=== PATIENT | female | born 1980 | race Caucasian/White ===

== ENCOUNTER 2017-02-13 09:01 | Emergency (ER) | payer BC, OTHER ==
[~2017-02-13] VITALS: Ht 165.1 cm; Wt 85.0 kg
[2017-02-13 09:23] VITALS: BP 111/72; PULSE 78; RESP 15; TEMP 98.2; O2SAT 98
[2017-02-13 09:37] LABS: AUTOMATED NEUTROPHIL # 4.7 TH/MM3 (1.8-7.7); BASOPHIL % 0.5 % (0.0-2.0); EOSINOPHIL # 0.1 TH/MM3 (0-0.4); EOSINOPHIL % 1.4 % (0.0-4.0); HEMATOCRIT 37.5 % (35.0-46.0); HEMO FLAGS DIFF FINAL; LYMPH % 28.6 % (9.0-44.0); LYMPHOCYTE # 2.1 TH/MM3 (1.0-4.8); MEAN CELL VOLUME 93.7 FL (80.0-100.0); MEAN CORPUSCULAR HEMOGLOBIN 33.2 PG (27.0-34.0); MEAN CORPUSCULAR HGB CONC 35.5 % (32.0-36.0); MONO % 6.6 % (0.0-8.0); NEUT % 62.9 % (16.0-70.0); PLATELET COUNT 279 TH/MM3 (150-450); RED CELL DISTRIBUTION WIDTH 13.4 % (11.6-17.2); WHITE BLOOD COUNT 7.4 TH/MM3 (4.0-11.0)
[2017-02-13 09:41] LABS: BLOOD, URINE NEG (NEG); CALCIUM OXALATE CRYSTALS,URINE OCC /hpf; GLUCOSE,URINE NEG (NEG); GRANULAR CAST, URINE 1 /lpf; HYALINE CAST, URINE 3 /lpf (RARE); KETONE, URINE NEG (NEG); MUCUS URINE FEW /lpf (OCC); NITRITE,URINE NEG (NEG); PH, URINE 5.5 (5.0-8.5); SQUAMOUS EPITHELIAL CELL URINE 10 /hpf (0-5); URINE COLOR YELLOW (YELLW/STRAW)
[2017-02-13 09:43] LABS: BACTERIA, URINE FEW /hpf
[2017-02-13 09:44] LABS: COMMENT (UR) CULT NOT INDICATED; CULTURE IF INDICATED CULT NOT INDICATED
[2017-02-13 09:47] LABS: AMPHETAMINE, URINE NEG (NEG); BARBITURATES, URINE NEG (NEG); COCAINE, URINE NEG (NEG)
[2017-02-13 09:54] LABS: ALT (GPT) 45 U/L (10-53); ANION GAP 5 MEQ/L (5-15); AST (GOT) 22 U/L (15-37); BICARBONATE 30.8 MEQ/L (21.0-32.0); BLOOD UREA NITROGEN 15 MG/DL (7-18); CHLORIDE 105 MEQ/L (98-107); GLOMERULAR FILTRATION RATE 62 ML/MIN (>89); POTASSIUM 3.8 MEQ/L (3.5-5.1); SODIUM (NA) 141 MEQ/L (136-145); TOTAL BILIRUBIN ADULT 0.4 MG/DL (0.2-1.0)
[2017-02-13 09:55] LABS: ALKALINE PHOSPHATASE 71 U/L (45-117)
--- NOTE | 2017-02-13 09:57 | PD ---
HPI Chief Complaint: Psychiatric Symptoms Time Seen by Provider: 09:44 Travel History International Travel<30 days: No Contact w/Intl Traveler<30days: No Traveled to known affect area: No History of Present Illness HPI 36-year-old female was Roper acted and brought in for psychiatric evaluation. Patient was communicating with a friend this morning about suicidal ideation. Patient has history hypertension, hyperlipidemia. Patient is a smoker. Patient denies any alcohol or illicit drug abuse. Patient has history of anxiety panic attack, depression also. Patient is taking Wellbutrin Klonopin and Ambien. Patient states that she was taking food out of the refrigerator and out of washer and dryer last night. Patient denies any headache. Patient denies any chest pain or shortness of breath. Patient denies abdominal pain. Patient denies any recent injury. Patient denies any fever chills. Patient denies any chance of being . PFSH Social History Tobacco Use: No Allergies-Medications (Allergen,Severity, Reaction): Coded Allergies: No Known Allergies (Unverified , 02/13/17) Reported Meds & Prescriptions Reported Meds & Active Scripts Active Reported Wellbutrin Xl 24 HR (Bupropion HCl) 300 Mg Tab 200 Mg PO BID Klonopin (Clonazepam) 1 Mg Tab 1 Mg PO TID Atorvastatin (Atorvastatin Calcium) 10 Mg Tab 10 Mg PO DAILY Metoprolol Tartrate 25 Mg Tab 25 Mg PO DAILY Review of Systems General / Constitutional: No: Fever Eyes: No: Visual changes HENT: No: Headaches Cardiovascular: No: Chest Pain or Discomfort Respiratory: No: Shortness of Breath Gastrointestinal: No: Abdominal Pain Genitourinary: No: Dysuria Musculoskeletal: No: Pain Skin: No Rash Neurologic: No: Weakness Psychiatric: Positive: Anxiety, Depression, Suicidal Ideations Endocrine: No: Polydipsia Hematologic/Lymphatic: No: Easy Bruising Physical Exam Narrative GENERAL: Well-nourished, well-developed patient. SKIN: Focused skin assessment warm/dry. HEAD: Normocephalic. EYES: No scleral icterus. No injection or drainage. NECK: Supple, trachea midline. No JVD or lymphadenopathy. CARDIOVASCULAR: Regular rate and rhythm without murmurs, gallops, or rubs. RESPIRATORY: Breath sounds equal bilaterally. No accessory muscle use. GASTROINTESTINAL: Abdomen soft, non-tender, nondistended. MUSCULOSKELETAL: No cyanosis, or edema. BACK: Nontender without obvious deformity. No CVA tenderness. Neurologic exam: Patient's awake alert oriented 3. No obvious focal neurological deficit. Data Data Last Documented VS Vital Signs Date Time Temp Pulse Resp B/P Pulse Ox O2 Delivery O2 Flow Rate FiO2 02/13/17 12:53 97.7 69 18 111/71 98 Room Air Orders Complete Blood Count With Diff (02/13/17 09:20) Comprehensive Metabolic Panel (02/13/17 09:20) Urinalysis - C+S If Indicated (02/13/17 09:20) Psych Screen (02/13/17 09:20) Diet Regular Basic (02/13/17 Breakfast) Drug Screen, Random Urine (02/13/17 09:20) Alcohol (Ethanol) (02/13/17 09:20) Diet Regular Basic (02/13/17 Dinner) Labs Laboratory Tests Test 02/13/17 09:24 White Blood Count 7.4 TH/MM3 Red Blood Count 4.00 MIL/MM3 Hemoglobin 13.3 GM/DL Hematocrit 37.5 % Mean Corpuscular Volume 93.7 FL Mean Corpuscular Hemoglobin 33.2 PG Mean Corpuscular Hemoglobin 35.5 % Concent Red Cell Distribution Width 13.4 % Platelet Count 279 TH/MM3 Mean Platelet Volume 8.1 FL Neutrophils (%) (Auto) 62.9 % Lymphocytes (%) (Auto) 28.6 % Monocytes (%) (Auto) 6.6 % Eosinophils (%) (Auto) 1.4 % Basophils (%) (Auto) 0.5 % Neutrophils # (Auto) 4.7 TH/MM3 Lymphocytes # (Auto) 2.1 TH/MM3 Monocytes # (Auto) 0.5 TH/MM3 Eosinophils # (Auto) 0.1 TH/MM3 Basophils # (Auto) 0.0 TH/MM3 CBC Comment DIFF FINAL Differential Comment Urine Color YELLOW Urine Turbidity HAZY Urine pH 5.5 Urine Specific [place] 1.028 Urine Protein 100 mg/dL Urine Glucose (UA) NEG mg/dL Urine Ketones NEG mg/dL Urine Occult Blood NEG Urine Nitrite NEG Urine Bilirubin NEG Urine Urobilinogen LESS THAN 2.0 MG/DL Urine Leukocyte Esterase NEG Urine WBC 3 /hpf Urine Squamous Epithelial 10 /hpf Cells Urine Calcium Oxalate Crystals OCC /hpf Urine Bacteria FEW /hpf Urine Hyaline Casts 3 /lpf Urine Granular Casts 1 /lpf Urine Mucus FEW /lpf Microscopic Urinalysis Comment CULT NOT INDICATED Sodium Level 141 MEQ/L Potassium Level 3.8 MEQ/L Chloride Level 105 MEQ/L Carbon Dioxide Level 30.8 MEQ/L Anion Gap 5 MEQ/L Blood Urea Nitrogen 15 MG/DL Creatinine 1.02 MG/DL Estimat Glomerular Filtration 62 ML/MIN Rate Random Glucose 75 MG/DL Calcium Level 9.4 MG/DL Total Bilirubin 0.4 MG/DL Aspartate Amino Transf 22 U/L (AST/SGOT) Alanine Aminotransferase 45 U/L (ALT/SGPT) Alkaline Phosphatase 71 U/L Total Protein 7.8 GM/DL Albumin 4.5 GM/DL Urine Opiates Screen NEG Urine Barbiturates Screen NEG Urine Amphetamines Screen NEG Urine Benzodiazepines Screen POS Urine Cocaine Screen NEG Urine Cannabinoids Screen NEG Ethyl Alcohol Level LESS THAN 3 MG/DL MDM Medical Decision Making Medical Screen Exam Complete: Yes Emergency Medical Condition: Yes Interpretation(s) 10:55 AM. CBC within normal limit. CMP within normal limit. Creatinine 1.02. Urine drug screen positive for benzodiazepine. Alcohol is negative. UA is negative. Differential Diagnosis Differential diagnosis including adjustment disorder, anxiety, depression, suicidal. Narrative Course 36-year-old female was Roper acted for suicidal ideation. Patient has history of anxiety depression and panic attack. 10:56 AM. Patient is medically cleared for psychiatric evaluation and disposition. Gadiel Butterfield MD February 13, 2017 09:57
[2017-02-13] MEDS ORDERED: CLON1 PO (11:20)
[2017-02-13] MEDS ORDERED: WELLTAB39 PO (11:20)
[2017-02-13] MEDS ORDERED: METO25TA3 PO (11:20)
[2017-02-13] MEDS ORDERED: ATOR10TA15 PO (11:20)
[2017-02-13 12:53] VITALS: BP 111/71; PULSE 69; RESP 18; TEMP 97.7; O2SAT 98
[2017-02-13 18:00] VITALS: BP 98/66; PULSE 86
--- NOTE | 2017-02-13 19:09 | PD ---
History of Present Illness Chief Complaint: Psychiatric Symptoms Time Seen by Provider: 18:30 Travel History International Travel<30 Days: No Contact w/Intl Traveler<30days: No Known affected area: No Legal Status Legal Status: Roper Act Roper Act Signed By: Gaetano Roper Act Comment: BarbaraSeveriano Luu Ro #[id number] History of Present Illness: History of Present Illness HPI 36-year-old female with history of anxiety, depression and substance use disorder who presents to Ed under a BA initiated by VICKIE. As per report patient was communicating with a friend this morning about suicidal ideation. This she states is related to feeling frustrated and feeling that she is being constantly criticized by her mother. the patient did not make any attempts at harming herself. EMR is reviewed and she has no previous contact with [facility] [place]. Current toxicology is positive for prescribed benzos. She was monitored in [facility] and presented no behavioral concerns and no suicidality. The patien is alert and cooperative. There is no indication of any psychosis and no yana. No suicidal or homicidal ideation. She sees a therapist and has an appointment scheduled for this Monday. She is requesting discharge at this time. PFSH Past Medical History Anxiety: Yes Depression: Yes High Cholesterol: Yes Hypertension: Yes Tetanus Vaccination: < 5 Years Influenza Vaccination: Yes ?: Unknown LMP: 01/10/17 : 5 Para: 1 : 3 Dilation and Curettage (D&C): Yes Past Surgical History Other Surgery: Yes (BREAST AUGMENTATION ) Psychiatric History Psychiatric History Hx Psychiatric Treatment: depression, anxiety Has been seeing a therapist x 1 year No hx of suicide attempts. History of Inpatient Treatment: No Guns or firearms in home: No Social History Single female. Has one son. lives with her mother. 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 Hx Alcohol Use: No Hx Tobacco Use: No Hx Substance Use: Yes (12 PPD smoker; last ETOH ~1 yr. ago; last cocaine 13 yrs. ago) Substance Use Type: Alcohol, Marijuana, Nicotine/Cigarettes, Cocaine, Synth Opiates-Pain Pills Other Substances Used: last Dilaudid ~ 6 yrs. ago Hx of Substance Use Treatment: Yes Family Psychiatric History Negative Allergies-Medications (Allergen,Severity, Reaction): Coded Allergies: No Known Allergies (Unverified , 02/13/17) Reported Meds & Prescriptions Reported Meds & Active Scripts Active Reported Wellbutrin Xl 24 HR (Bupropion HCl) 300 Mg Tab 200 Mg PO BID Klonopin (Clonazepam) 1 Mg Tab 1 Mg PO TID Atorvastatin (Atorvastatin Calcium) 10 Mg Tab 10 Mg PO DAILY Metoprolol Tartrate 25 Mg Tab 25 Mg PO DAILY Review of Systems Except as stated in HPI: all other systems reviewed are Neg Psychiatric: COMPLAINS OF: Anxiety Exam Alert: Yes [place]: Person (ox4) Mood: Anxious Affect: Appropriate Speech: Clear, Logical Eye Contact: Normal Memory Intact: Comment (no impairmetn) Hallucinations: Other (Negative) Delusions: No Suicidal: Ideation (deneis any) Homicidal: Ideation (deneis any) Insight/Judgement Fair. Not impaired. MDM Medical Decision Making Medical Record Reviewed: Yes Assessment/Plan 36 year old female with hx of anxiety , depression and substance use disorder under a BA after she made suicidal statements to some friends. She acknowledges that she made such statements in context of feeling frustrated, overwhelmed and being involved in an argument with her mother. She denies any suicidal or homicidal ideation, intent or plan. At this time she does not present acute risk to self or others and does not meet BA criteria. She is future oriented and is connected with a therapist as well. Discharge to self. Orders Complete Blood Count With Diff (02/13/17 09:20) Comprehensive Metabolic Panel (02/13/17 09:20) Urinalysis - C+S If Indicated (02/13/17 09:20) Psych Screen (02/13/17 09:20) Diet Regular Basic (02/13/17 Breakfast) Drug Screen, Random Urine (02/13/17 09:20) Alcohol (Ethanol) (02/13/17 09:20) Diet Regular Basic (02/13/17 Dinner) Results Vital Signs Date Time Temp Pulse Resp B/P Pulse Ox O2 Delivery O2 Flow Rate FiO2 02/13/17 18:00 86 98/66 Room Air 02/13/17 12:53 97.7 69 18 111/71 98 Room Air 02/13/17 09:23 98.2 78 15 111/72 98 Laboratory Tests Test 02/13/17 09:24 White Blood Count 7.4 Red Blood Count 4.00 Hemoglobin 13.3 Hematocrit 37.5 Mean Corpuscular Volume 93.7 Mean Corpuscular Hemoglobin 33.2 Mean Corpuscular Hemoglobin 35.5 Concent Red Cell Distribution Width 13.4 Platelet Count 279 Mean Platelet Volume 8.1 Neutrophils (%) (Auto) 62.9 Lymphocytes (%) (Auto) 28.6 Monocytes (%) (Auto) 6.6 Eosinophils (%) (Auto) 1.4 Basophils (%) (Auto) 0.5 Neutrophils # (Auto) 4.7 Lymphocytes # (Auto) 2.1 Monocytes # (Auto) 0.5 Eosinophils # (Auto) 0.1 Basophils # (Auto) 0.0 CBC Comment DIFF FINAL Differential Comment Urine Color YELLOW Urine Turbidity HAZY Urine pH 5.5 Urine Specific [place] 1.028 Urine Protein 100 Urine Glucose (UA) NEG Urine Ketones NEG Urine Occult Blood NEG Urine Nitrite NEG Urine Bilirubin NEG Urine Urobilinogen LESS THAN 2.0 Urine Leukocyte Esterase NEG Urine WBC 3 Urine Squamous Epithelial 10 Cells Urine Calcium Oxalate Crystals OCC Urine Bacteria FEW Urine Hyaline Casts 3 Urine Granular Casts 1 Urine Mucus FEW Microscopic Urinalysis Comment CULT NOT INDICATED Sodium Level 141 Potassium Level 3.8 Chloride Level 105 Carbon Dioxide Level 30.8 Anion Gap 5 Blood Urea Nitrogen 15 Creatinine 1.02 Estimat Glomerular Filtration 62 Rate Random Glucose 75 Calcium Level 9.4 Total Bilirubin 0.4 Aspartate Amino Transf 22 (AST/SGOT) Alanine Aminotransferase 45 (ALT/SGPT) Alkaline Phosphatase 71 Total Protein 7.8 Albumin 4.5 Urine Opiates Screen NEG Urine Barbiturates Screen NEG Urine Amphetamines Screen NEG Urine Benzodiazepines Screen POS Urine Cocaine Screen NEG Urine Cannabinoids Screen NEG Ethyl Alcohol Level LESS THAN 3 Diagnosis Primary Impression: Adjustment disorder Psychiatrically Cleared: Yes Departure Forms: Work Release, Enter return to work date: February 15, 2017 Tests/Procedures Patient Instructions: General Instructions, Mood Disorders (ED), Suicide Prevention for Adults (ED) Additional Instructions: Follow up with counselor as soon as possible. Return to ED for any worsening. Med/ Other Pt Specific Info: No Change to Meds Disposition: 01 DISCHARGE HOME Condition: Stable Problem Qualifiers Primary Impression: Adjustment disorder Qualified Code: F43.23 - Adjustment disorder with mixed anxiety and depressed mood Aury Babb Pederson EXECUTIVE ADMINISTRATOR February 13, 2017 19:09
== END 2017-02-13 19:34 | disposition home or self-care (01) ==
LOC: NEPD 09:01 → NEPJ 19:34
DX: F43.23 Adjustment disorder with mixed anxiety and depressed mood (principal); I10 Essential (primary) hypertension; Z72.0 Tobacco use
CPT/HCPCS: 80053; 80307; 81001; 85025; 99283